=== PATIENT | female | born 1955 | race Caucasian/White ===

== ENCOUNTER 2017-03-30 16:17 | Outpatient (CLI) | payer BC | END 2017-03-30 16:18 | disposition home or self-care (01) | LOC: BICMAMMO 16:17 | PROVIDERS: ATTEND Obstetrics & Gynecology | DX: Z12.31 Encounter for screening mammogram for malignant neoplasm of breast (principal); Z80.3 Family history of malignant neoplasm of breast | CPT/HCPCS: 77063; 77067 ==

== ENCOUNTER 2018-04-01 07:47 | Outpatient (CLI) | payer BC ==
--- NOTE | 2018-04-01 09:32 | BD ---
DEXA BONE DENSITY STUDY: Date: 04/01/18 HISTORY: Osteoporosis. COMPARISON: None. FINDINGS: Lumbar Spine: BMD (g/cm2) L1 0.848 T-Score: -1.3 Z-Score: 0.0 L2 0.996 T-Score: -0.3 Z-Score: 1.1 L3 1.029 T-Score: -0.5 Z-Score: 1.0 L4 1.000 T-Score: -0.6 Z-Score: 1.0 L1-L4 0.973 T-Score: -0.7 Z-Score: 0.8 WHO Classification: Normal. Left Femoral Neck: 0.588 T-Score: -2.4 Z-Score: -1.1 Total Femur: 0.775 T-Score: -1.4 Z-Score: 0.4 WHO Classification: Osteopenia. FRAX score is not reported as the patient has been treated for osteoporosis. IMPRESSION: Osteopenia left femoral neck and total left hip. POS: TPC
== END 2018-04-01 07:48 | disposition home or self-care (01) ==
LOC: BICMAMMO 07:47
PROVIDERS: ATTEND Internal Medicine Rheumatology
DX: Z12.31 Encounter for screening mammogram for malignant neoplasm of breast (principal); M81.0 Age-related osteoporosis without current pathological fracture; M85.89 Other specified disorders of bone density and structure, multiple sites; R92.1 Mammographic calcification found on diagnostic imaging of breast; Z80.3 Family history of malignant neoplasm of breast
CPT/HCPCS: 77063; 77067; 77080

== ENCOUNTER 2019-04-02 07:43 | Outpatient (CLI) | payer BC ==
--- NOTE | 2019-04-02 08:39 | MMO ---
Bilateral MAMMO Bilat Screen [facility]. CLINICAL HISTORY: Patient is 63 years old and is seen for screening. The patient has the following family history of breast cancer: mother, OVARIAN - MELANOMA - BLADDER. The patient has no personal history of cancer. The patient has a history of right Excisional Biopsy in 1997 - benign. VIEWS: The views performed were: bilateral craniocaudal with tomosynthesis and bilateral mediolateral oblique with tomosynthesis. FILMS COMPARED: The present examination has been compared to prior imaging studies performed at [facility] on 03/20/2016, 03/23/2016, 03/30/2017 and 04/01/2018. This study has been interpreted with the assistance of computer-aided detection. MAMMOGRAM FINDINGS: There are scattered fibroglandular densities. There are stable post operative changes seen in the right breast. There are no suspicious masses, suspicious calcifications, or new areas of architectural distortion. IMPRESSION: THERE IS NO MAMMOGRAPHIC EVIDENCE OF MALIGNANCY. A ROUTINE FOLLOW-UP MAMMOGRAM IN 1 YEAR IS RECOMMENDED. THE RESULTS OF THIS EXAM WERE SENT TO THE PATIENT. ACR BI-RADS Category 2 - Benign finding MAMMOGRAPHY NOTE: 1. A negative mammogram report should not delay a biopsy if a dominant of clinically suspicious mass is present. 2. Approximately 10% to 15% of breast cancers are not detected by mammography. 3. Adenosis and dense breasts may obscure an underlying neoplasm. Reported by: RICHELLE GARCIA MD Electonically Signed: [id number]
== END 2019-04-02 07:44 | disposition home or self-care (01) ==
LOC: BICMAMMO 07:43
PROVIDERS: ATTEND Obstetrics & Gynecology
DX: Z12.31 Encounter for screening mammogram for malignant neoplasm of breast (principal); Z80.3 Family history of malignant neoplasm of breast; Z91.89 Other specified personal risk factors, not elsewhere classified
CPT/HCPCS: 77063; 77067

== ENCOUNTER 2020-04-05 08:08 | Outpatient (CLI) | payer BC ==
--- NOTE | 2020-04-05 09:26 | MMO ---
Bilateral MAMMO Bilat Screen [facility]. CLINICAL HISTORY: Patient is 64 years old and is seen for screening. The patient has the following family history of breast cancer: mother, OVARIAN - MELANOMA - BLADDER. The patient has no personal history of cancer. The patient has a history of right Excisional Biopsy in 1997 - benign. VIEWS: The views performed were: bilateral craniocaudal with tomosynthesis and bilateral mediolateral oblique with tomosynthesis. FILMS COMPARED: The present examination has been compared to prior imaging studies performed at [facility] on 03/23/2016, 03/30/2017, 04/01/2018 and 04/02/2019. This study has been interpreted with the assistance of computer-aided detection. MAMMOGRAM FINDINGS: There are scattered fibroglandular densities. Benign calcifications are noted bilaterally. There are stable right post-operative changes. There are no suspicious masses, suspicious calcifications, or new areas of architectural distortion. IMPRESSION: THERE IS NO MAMMOGRAPHIC EVIDENCE OF MALIGNANCY. A ROUTINE FOLLOW-UP MAMMOGRAM IN 1 YEAR IS RECOMMENDED. THE RESULTS OF THIS EXAM WERE SENT TO THE PATIENT. ACR BI-RADS Category 2 - Benign finding MAMMOGRAPHY NOTE: 1. A negative mammogram report should not delay a biopsy if a dominant of clinically suspicious mass is present. 2. Approximately 10% to 15% of breast cancers are not detected by mammography. 3. Adenosis and dense breasts may obscure an underlying neoplasm. Reported by: DOMENICO LOPEZ MD Electonically Signed: [id number]
--- NOTE | 2020-04-05 09:31 | BD ---
DEXA BONE MINERAL DENSITY STUDY: HISTORY: Age-related osteoporosis. COMPARISON: None. FINDINGS: Lumbar Spine: BMD (g/cm2) L1 0.784 T-Score: -1.9 -0.5 L2 0.926 T-Score: -0.9 0.6 L3 0.957 T-Score: -1.2 0.5 L4 0.954 T-Score: -1.0 0.7 L1-L4 0.912 T-Score: -1.2 0.4 Femoral Neck: 0.597 T-Score: -2.3 -0.9 Total Femur: 0.726 T-Score: -1.8 -0.7 WHO classification osteopenia. TEN-YEAR FRACTURE RISK: Major osteoporotic fracture: 18%. Hip fracture: 1.8%. Impression: Osteopenia with fracture risk as above. POS: [facility]
== END 2020-04-05 08:09 | disposition home or self-care (01) ==
LOC: BICMAMMO 08:08
PROVIDERS: ATTEND Obstetrics & Gynecology
DX: Z12.31 Encounter for screening mammogram for malignant neoplasm of breast (principal); M85.89 Other specified disorders of bone density and structure, multiple sites; M81.0 Age-related osteoporosis without current pathological fracture; Z80.3 Family history of malignant neoplasm of breast
CPT/HCPCS: 77063; 77067; 77080

== ENCOUNTER 2021-04-07 08:08 | Outpatient (CLI) | payer BC | END 2021-04-07 08:09 | disposition home or self-care (01) | LOC: BICMAMMO 08:08 | PROVIDERS: ATTEND Obstetrics & Gynecology | DX: Z12.31 Encounter for screening mammogram for malignant neoplasm of breast (principal); Z80.3 Family history of malignant neoplasm of breast; Z91.89 Other specified personal risk factors, not elsewhere classified | CPT/HCPCS: 77063; 77067 ==

== ENCOUNTER 2022-04-21 07:49 | Outpatient (CLI) | payer BC | END 2022-04-21 07:50 | disposition home or self-care (01) | LOC: BICMAMMO 07:49 | PROVIDERS: ATTEND Obstetrics & Gynecology | DX: Z12.31 Encounter for screening mammogram for malignant neoplasm of breast (principal); N64.89 Other specified disorders of breast; M85.851 Other specified disorders of bone density and structure, right thigh; M85.852 Other specified disorders of bone density and structure, left thigh; M81.0 Age-related osteoporosis without current pathological fracture; Z80.3 Family history of malignant neoplasm of breast; Z91.89 Other specified personal risk factors, not elsewhere classified | CPT/HCPCS: 77063; 77067; 77080 ==